=== PATIENT | female | born 1995 | race Hispanic/Latino ===

== ENCOUNTER 2017-12-17 13:42 | Emergency (ER) | payer BC ==
[2017-12-17 15:06] LABS: Urine Blood NEGATIVE (NEG); Urine Glucose NEGATIVE (NEG); Urine Protein TRACE (NEG); Urine Specific Gravity 1.025 (1.005-1.030); Urine pH 6.5 (5.0-7.0)
[2017-12-17] MEDS ORDERED: MECLIZINE HCL 12.5 MG TAB ONE (15:06)
--- NOTE | 2017-12-17 16:17 | RAD REPORT ---
EXAM DESCRIPTION: CT - Head Brain Wo Cont - 12/17/2017 4:08 pm CLINICAL HISTORY: Headache and dizziness COMPARISON: None. TECHNIQUE: Computed axial tomography of the head was obtained. IV contrast was not requested. All CT scans are performed using dose optimization technique as appropriate and may include automated exposure control or mA/KV adjustment according to patient size. FINDINGS: An intracranial bleed is not seen . The ventricles are normal in caliber. No extra-axial fluid collection is noted. Fluid within the sinuses/ mastoids is not seen. IMPRESSION: No acute intracranial abnormality is seen. If patient's symptoms persist MRI of the bra in would be recommended.
[2017-12-17] MEDS ORDERED: KETOROLAC 30 MG/ML INJ ONE (16:46)
--- NOTE | 2017-12-17 16:47 | EDPHYS ---
Physician Documentation [facility] Name: Lexy Nicholas Age: 22 yrs Sex: Female : 1995 Arrival Date: 12/17/2017 Time: 13:45 Bed 28 Private MD: ED Physician Steven Castillo HPI: 12/17 16:00 This 22 yrs old Female presents to ER via Ambulatory with complaints of pm1 Vertigo and headache. 16:00 The patient reports fever, not measured (subjective). pm1 16:00 Onset: The symptoms/episode began/occurred 5 day(s) ago. Modifying factors: vertigo pm1 worse with position change and moving head. Associated signs and symptoms: Pertinent positives: earache, headache, Pertinent negatives: abdominal pain. The patient has not recently seen a physician. Patient with reports of recent URI and sinus congestion prior to onset of headache, vertigo and left ear pain. Patient also complaining of neck pain. 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 - Social history:: Smoking status: Patient/guardian denies using tobacco, never smoked. ROS: 16:00 Constitutional: Negative for fever, chills, and weight loss, Eyes: Negative for injury, pm1 pain, redness, and discharge. 16:00 Cardiovascular: Negative for chest pain, palpitations, and edema, Respiratory: Negative for shortness of breath, cough, wheezing, and pleuritic chest pain, Abdomen/GI: Negative for abdominal pain, nausea, vomiting, diarrhea, and constipation, Back: Negative for injury and pain, : Negative for injury, bleeding, discharge, and swelling. 16:00 MS/Extremity: Negative for injury and deformity, Skin: Negative for injury, rash, and discoloration. 16:00 ENT: Positive for ear pain, Negative for drainage from ear(s), tinnitus. 16:00 Neck: Positive for pain with movement, Negative for stiffness, swelling, swollen nodes. 16:00 Neuro: Positive for headache, vertigo. Exam: 16:00 Constitutional: This is a well developed, well nourished patient who is awake, alert, pm1 and in no acute distress. Head/Face: Normocephalic, atraumatic. 16:00 ENT: Nares patent. No nasal discharge, no septal abnormalities noted. Tympanic membranes are normal and external auditory canals are clear. Oropharynx with no redness, swelling, or masses, exudates, or evidence of obstruction, uvula midline. Mucous membranes moist. Neck: Trachea midline, no thyromegaly or masses palpated, and no cervical lymphadenopathy. Supple, full range of motion without nuchal rigidity, or vertebral point tenderness. No Meningismus. Chest/axilla: Normal chest wall appearance and motion. Nontender with no deformity. No lesions are appreciated. Cardiovascular: Regular rate and rhythm with a normal S1 and S2. No gallops, murmurs, or rubs. Normal PMI, no JVD. No pulse deficits. Respiratory: Lungs have equal breath sounds bilaterally, clear to auscultation and percussion. No rales, rhonchi or wheezes noted. No increased work of breathing, no retractions or nasal flaring. Abdomen/GI: Soft, non-tender, with normal bowel sounds. No distension or tympany. No guarding or rebound. No evidence of tenderness throughout. Back: No spinal tenderness. No costovertebral tenderness. Full range of motion. Skin: Warm, dry with normal turgor. Normal color with no rashes, no lesions, and no evidence of cellulitis. MS/ Extremity: Pulses equal, no cyanosis. Neurovascular intact. Full, normal range of motion. 16:00 Eyes: Periorbital structures: appear normal, Pupils: no acute changes, equal, round, and reactive to light and accomodation, Extraocular movements: intact throughout, Nystagmus: 16:00 Neuro: Orientation: is normal, Positive Rita-Hallpike, rapid onset and resolution less than 5 seconds. 16:00 Neuro: Cranial nerves: CN II- XII are normal as tested, Cerebellar function: normal finger to nose testing, Motor: moves all fours, strength is normal, strength is 5/5 in all extremities, Sensation: is normal, no obvious gross deficits, Gait: is steady, at a normal pace, without difficulty. Vital Signs: 13:50 BP 142 / 96; Pulse 115; Resp 18; Temp 98.2(TE); Pulse Ox 100% on R/A; Weight 121.56 kg; hj Height 5 ft. 6 in. (167.64 cm); Pain 10/10; 15:21 BP 118 / 79; Pulse 91; Resp 18; Pulse Ox 100% ; tl3 16:30 BP 117 / 64; Pulse 92; Resp 18; Temp 98.8(O); Pulse Ox 100% ; tl3 17:15 BP 109 / 71; Pulse 92; Resp 18; Pulse Ox 100% ; tl3 13:50 Body Mass Index 43.25 (121.56 kg, 167.64 cm) hj MDM: 14:00 Patient medically screened. [facility] 14:57 Data reviewed: vital signs. Data interpreted: Pulse oximetry: on room air is 100 %. pm1 Interpretation: normal. 16:43 Counseling: I had a detailed discussion with the patient and/or guardian regarding: the pm1 historical points, exam findings, and any diagnostic results supporting the discharge/admit diagnosis, radiology results, the need for outpatient follow up, to return to the emergency department if symptoms worsen or persist or if there are any questions or concerns that arise at home. 12/17 14:49 Order name: Urine Dipstick--Ancillary (enter results); Complete Time: 15:45 ag 12/17 14:49 Order name: Urine --Ancillary (enter results); Complete Time: 15:45 ag 12/17 15:52 Order name: CT Head Brain wo Cont; Complete Time: 16:33 pm1 12/17 14:41 Order name: Urine Dipstick-Ancillary (obtain specimen); Complete Time: 14:45 pm1 12/17 14:41 Order name: Urine Test (obtain specimen); Complete Time: 14:44 pm1 Administered Medications: 14:47 Drug: Meclizine 25 mg Route: PO; tl3 16:30 Follow up: Response: No adverse reaction; Marked relief of symptoms tl3 16:30 Drug: TORadol 60 mg Route: IM; Site: left gluteus; tl3 17:15 Follow up: Response: No adverse reaction; Pain is decreased tl3 17:14 Drug: Decadron 10 mg Route: IM; Site: Other; tl3 17:14 Follow up: Response: No adverse reaction; Medication administered at discharge. tl3 Disposition: 12/18 10:26 Co-signature as Attending Physician, Steven Castillo MD I agree with the assessment and [facility] plan of care. Disposition: 12/17/17 16:47 Discharged to Home. Impression: Benign paroxysmal vertigo, Headache, Otalgia, bilateral. - Condition is Stable. - Discharge Instructions: Benign Positional Vertigo, General Headache Without Cause, Earache. - Prescriptions for Antivert 25 mg Oral Tablet - take 1 tablet by ORAL route every 8 hours As needed; 20 tablet. Medrol (Oren) 4 mg Oral Tablets, Dose Pack - take 1 tablet by ORAL route as directed - follow package instructions; 1 packet. - Medication Reconciliation Form, Thank You Letter form. - Follow up: Emergency Department; When: As needed; Reason: Worsening of condition. Follow up: Private Physician; When: 2 - 3 days; Reason: Recheck today's complaints, Continuance of care, Re-evaluation by your physician. - Problem is new. - Symptoms have improved. Signatures: Dispatcher [employer] Steven Graham MD MD cha Joaquin, Henry, RN RN Andrew Hutchinson NP MAIL HANDLER EQUIPMENT OPERATOR pm1 Sheridan Eddy RN RN tl3
--- NOTE | 2017-12-17 16:47 | ER ---
Nurse's Notes [facility] Name: Lexy Nicholas Age: 22 yrs Sex: Female : 1995 Arrival Date: 12/17/2017 Time: 13:45 Bed 28 Private MD: Diagnosis: Headache;Benign paroxysmal vertigo;Otalgia, bilateral Presentation: 12/17 13:48 Presenting complaint: Patient states: i have been having this neck pain that moves from hj my R ear that started Thursday; reports nausea;. Transition of care: patient was not received from another setting of care. Onset of symptoms was December 17, 2017. Care prior to arrival: None. 13:48 Method Of Arrival: Ambulatory 13:48 Acuity: DLAE 4 hj Triage Assessment: 13:49 General: Appears in no apparent distress. uncomfortable, Behavior is calm, cooperative, hj appropriate for age. Pain: Complains of pain in right ear and left posterior aspect of neck. EENT: Reports pain. 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 - Social history:: Smoking status: Patient/guardian denies using tobacco, never smoked. Screenin:01 Abuse screen: Denies threats or abuse. Nutritional screening: No deficits noted. tl3 Tuberculosis screening: No symptoms or risk factors identified. Fall Risk None identified. Assessment: 14:20 General: Appears in no apparent distress. comfortable, well groomed, well developed, tl3 well nourished, Behavior is calm, cooperative, appropriate for age. Pain: Complains of pain in right lower quadrant and left lower quadrant. Neuro: Level of Consciousness is awake, alert, obeys commands, Oriented to person, place, time, situation, Appropriate for age. Cardiovascular: Heart tones S1 S2 present Capillary refill < 3 seconds in bilateral fingers. Respiratory: Airway is patent Trachea midline Respiratory effort is even, unlabored, Respiratory pattern is regular, symmetrical, Breath sounds are clear bilaterally. GI: No signs and/or symptoms were reported involving the gastrointestinal system. : No signs and/or symptoms were reported regarding the genitourinary system. EENT: Reports decreased hearing in right ear. Derm: No signs and/or symptoms reported regarding the dermatologic system. Musculoskeletal: No signs and/or symptoms reported regarding the musculoskeletal system. 15:21 Reassessment: Patient appears in no apparent distress at this time. No changes from tl3 previously documented assessment. Patient and/or family updated on plan of care and expected duration. Pain level reassessed. Patient is alert, oriented x 3, equal unlabored respirations, skin warm/dry/pink. pt c/o headache, provider notified. 16:30 Reassessment: Patient appears in no apparent distress at this time. No changes from tl3 previously documented assessment. Patient and/or family updated on plan of care and expected duration. Pain level reassessed. Patient is alert, oriented x 3, equal unlabored respirations, skin warm/dry/pink. awaiting ct results. 17:15 Reassessment: Patient appears in no apparent distress at this time. No changes from tl3 previously documented assessment. Patient and/or family updated on plan of care and expected duration. Pain level reassessed. Patient is alert, oriented x 3, equal unlabored respirations, skin warm/dry/pink. Vital Signs: 13:50 BP 142 / 96; Pulse 115; Resp 18; Temp 98.2(TE); Pulse Ox 100% on R/A; Weight 121.56 kg; hj Height 5 ft. 6 in. (167.64 cm); Pain 10/10; 15:21 BP 118 / 79; Pulse 91; Resp 18; Pulse Ox 100% ; tl3 16:30 BP 117 / 64; Pulse 92; Resp 18; Temp 98.8(O); Pulse Ox 100% ; tl3 17:15 BP 109 / 71; Pulse 92; Resp 18; Pulse Ox 100% ; tl3 13:50 Body Mass Index 43.25 (121.56 kg, 167.64 cm) ED Course: 13:45 Patient arrived in ED. rg4 13:49 Triage completed. hj 13:50 Arm band placed on left wrist. hj 13:54 Andrew Vazquez NP is PHCP. pm1 13:54 Steven Castillo MD is Attending Physician. pm1 14:18 Sheridan Eddy RN is Primary Nurse. tl3 15:01 No apparent distress. tl3 15:01 Patient has correct armband on for positive identification. Bed in low position. Call tl3 light in reach. Side rails up X 1. 15:01 No provider procedures requiring assistance completed. Patient did not have IV access tl3 during this emergency room visit. 15:21 Door closed. Lights dimmed. Warm blanket given. tl3 16:08 CT Head Brain wo Cont In Process Unspecified. EDMS Administered Medications: 14:47 Drug: Meclizine 25 mg Route: PO; tl3 16:30 Follow up: Response: No adverse reaction; Marked relief of symptoms tl3 16:30 Drug: TORadol 60 mg Route: IM; Site: left gluteus; tl3 17:15 Follow up: Response: No adverse reaction; Pain is decreased tl3 17:14 Drug: Decadron 10 mg Route: IM; Site: Other; tl3 17:14 Follow up: Response: No adverse reaction; Medication administered at discharge. tl3 Outcome: 16:47 Discharge ordered by MD. pm1 17:15 Discharged to home ambulatory. tl3 17:15 Condition: good 17:15 Discharge instructions given to patient, Instructed on discharge instructions, follow up and referral plans. medication usage, Demonstrated understanding of instructions, follow-up care, medications, Prescriptions given X 2. 17:16 Patient left the ED. tl3 Signatures: Dispatcher [employer] EDMS Lamberto Daniels RN RN Andrew Vazquez, KHLOE MEAT HANGER pm1 Yamilex Silvestre rg4 Sheridan Eddy RN RN tl3 Corrections: (The following items were deleted from the chart) 13:51 13:50 Pulse 115bpm; Resp 18bpm; Pulse Ox 100% RA; Temp 98.2F Temporal; 121.56 kg; hj Height 5 ft. 6 in.; BMI: 43.2; Pain 10/10; hj
[2017-12-17] MEDS ORDERED: DEXAMETHASONE 10 MG/ML VIAL ONE (17:28)
== END 2017-12-17 17:16 | disposition home or self-care (01) ==
LOC: ER 13:42
DX: H81.10 Benign paroxysmal vertigo, unspecified ear (principal); H92.03 Otalgia, bilateral
CPT/HCPCS: 70450; 81003; 81025; 96372; 99283; J1100